=== PATIENT | female | born 1935 | race Caucasian/White ===

== ENCOUNTER 2019-06-22 19:06 | Emergency (ER) | payer OTHER ==
[~2019-06-22] VITALS: Ht 157.5 cm; Wt 39.9 kg
[2019-06-22 19:07] VITALS: BP_SYST 182
[2019-06-22] MEDS ORDERED: LISI-600 PO (19:36)
[2019-06-22 19:41] LABS: BILIRUBIN,URINE NEGATIVE (NEGATIVE); BLOOD, URINE NEGATIVE (NEGATIVE); CLARITY/URINE CLOUDY (CLEAR); COLOR,URINE YELLOW (YELLOW); GLUCOSE,URINE NEGATIVE (NEGATIVE); KETONES,URINE TRACE (NEGATIVE); LEUKOCYTE ESTERASE ,URINE 2+ (NEGATIVE); NITRITE, URINE POSITIVE (NEGATIVE); PH,URINE 6.5 (5.0-8.0); PROTEIN URINE TRACE (NEGATIVE)
[2019-06-22 19:45] LABS: BASOPHILS % (AUTO) 0.5 % (0.0-2.0); EOSINOPHILS # (AUTO) 0.2 K/uL (0.0-0.4); EOSINOPHILS % (AUTO) 3.9 % (0.0-4.0); HEMATOCRIT 37.5 % (36-48); HEMOGLOBIN 12.6 g/dL (12.0-16.0); LYMPHOCYTES # (AUTO) 1.6 K/uL (1.0-5.5); LYMPHOCYTES % (AUTO) 37.8 % (20.5-51.5); MEAN CORPUSCULAR HEMOGLOBIN 33 pg (27-31); MEAN CORPUSCULAR HGB CONC 34 % (32-36); MEAN CORPUSCULAR VOLUME 97 fL (79.0-98.0); MONOCYTES # (AUTO) 0.4 K/uL (0.0-1.0); MONOCYTES % (AUTO) 9.4 % (1.7-9.3); NEUTROPHILS % (AUTO) 48.4 % (40.0-70.0); PLATELET COUNT (AUTO) 239 K/uL (130-430); RED BLOOD CELL COUNT(AUTO) 3.87 MIL/uL (4.2-6.2); RED CELL DISTRIBUTION WIDTH 14.1 % (9.0-15.0); WHITE BLOOD COUNT (AUTO) 4.1 K/uL (4.8-10.8)
[2019-06-22 19:56] LABS: ANION GAP 10 (5-15); CALCIUM 8.9 mg/dL (8.4-11.0); CHLORIDE 102 mmol/L (98-107); CREATININE 1.07 mg/dL (0.55-1.30); GLUCOSE 105 mg/dL (70-99); POTASSIUM 3.9 mmol/L (3.5-5.1); SODIUM SERUM 138 mmol/L (136-145); UREA NITROGEN, BLOOD 25 mg/dL (8-21)
[2019-06-22 20:01] LABS: ALANINE AMINOTRANSFERASE 16 U/L (12-78); ALBUMIN 3.4 g/dL (3.4-4.8); ASPARTATE AMINOTRANSFERASE 14 U/L (10-37); TOTAL BILIRUBIN 0.5 mg/dL (0.0-1.0)
[2019-06-22 20:07] LABS: PROTHROMBIN TIME 10.1 SECS (9.5-12.5)
[2019-06-22 20:12] LABS: RBC,URINE 0-3 /HPF (0-3)
[2019-06-22 20:13] LABS: BACTERIA,URINE MANY /HPF (None Seen); WBC,URINE 50-80 /HPF (0-3)
[2019-06-22 20:14] LABS: URINE AMORPHOUS PHOSPHATES 2+ /HPF (None Seen)
[2019-06-22] MEDS ORDERED: LABETALOL 100 MG/ 20ML VIAL IVP ONE (20:30)
[2019-06-22] MEDS ORDERED: cefTRIAXone 1 GM IVPB PREMIX 50 ML IV ONE (20:30)
[2019-06-22 22:31] VITALS: BP_SYST 166
== END 2019-06-22 22:31 | disposition short-term general hospital (02) ==
LOC: SED 19:06
DX: I63.9 Cerebral infarction, unspecified (principal); N39.0 Urinary tract infection, site not specified; I10 Essential (primary) hypertension
CPT/HCPCS: 36415; 70450; 71045; 80053; 81000; 83605; 84484; 85025; 85610; 85730; 87040; 87086; 87186; 93005; 96365; 99285; J0696; J3490

== ENCOUNTER 2019-12-07 11:25 | Inpatient (IN) | payer OTHER, SELFPAY ==
[~2019-12-07] VITALS: Ht 154.9 cm; Wt 37.6 kg
[2019-12-07 11:25] VITALS: BP_SYST 75
[~2019-12-07 11:25] MED LIST: LISI-600 PO
[2019-12-07] MEDS ORDERED: NACL 0.9% 1,000 ML IV ONE (12:15)
[2019-12-07 13:20] LABS: BASOPHILS % (AUTO) 0.1 % (0.0-2.0); EOSINOPHILS % (AUTO) 0.2 % (0.0-4.0); HEMATOCRIT 32.6 % (36-48); HEMOGLOBIN 10.9 g/dL (12.0-16.0); LYMPHOCYTES # (AUTO) 0.7 K/uL (1.0-5.5); LYMPHOCYTES % (AUTO) 7.4 % (20.5-51.5); MEAN CORPUSCULAR HEMOGLOBIN 32 pg (27-31); MEAN CORPUSCULAR HGB CONC 33 % (32-36); MEAN CORPUSCULAR VOLUME 96 fL (79.0-98.0); MONOCYTES # (AUTO) 0.6 K/uL (0.0-1.0); MONOCYTES % (AUTO) 5.7 % (1.7-9.3); NEUTROPHILS # (AUTO) 8.4 K/uL (1.8-7.7); NEUTROPHILS % (AUTO) 86.6 % (40.0-70.0); PLATELET COUNT (AUTO) 341 K/uL (130-430); RED BLOOD CELL COUNT(AUTO) 3.38 MIL/uL (4.2-6.2); RED CELL DISTRIBUTION WIDTH 13.6 % (9.0-15.0); WHITE BLOOD COUNT (AUTO) 9.7 K/uL (4.8-10.8)
[2019-12-07 13:48] LABS: ANION GAP 11 (5-15); CALCIUM 8.8 mg/dL (8.4-11.0); CHLORIDE 104 mmol/L (98-107); CREATININE 1.54 mg/dL (0.55-1.30); GLUCOSE 173 mg/dL (70-99); POTASSIUM 4.4 mmol/L (3.5-5.1); SODIUM SERUM 140 mmol/L (136-145); UREA NITROGEN, BLOOD 75 mg/dL (8-21)
[2019-12-07 14:02] LABS: ALANINE AMINOTRANSFERASE 28 U/L (12-78); ALBUMIN 2.3 g/dL (3.4-4.8); ASPARTATE AMINOTRANSFERASE 47 U/L (10-37); TOTAL BILIRUBIN 0.4 mg/dL (0.0-1.0)
[2019-12-07 14:09] LABS: INR 1.1 (0.8-1.2); PROTHROMBIN TIME 10.8 SECS (9.5-12.5)
[2019-12-07 15:41] LABS: BILIRUBIN,URINE 1+ (NEGATIVE); BLOOD, URINE 1+ (NEGATIVE); CLARITY/URINE TURBID (CLEAR); COLOR,URINE YELLOW (YELLOW); GLUCOSE,URINE NEGATIVE (NEGATIVE); KETONES,URINE TRACE (NEGATIVE); LEUKOCYTE ESTERASE ,URINE 2+ (NEGATIVE); NITRITE, URINE NEGATIVE (NEGATIVE); PH,URINE 7.5 (5.0-8.0); PROTEIN URINE 2+ (NEGATIVE); UROBILINOGEN,URINE 0.2 (0.2-1.0)
[2019-12-07] MEDS ORDERED: ATOR40TA68 PO (16:28)
[2019-12-07] MEDS ORDERED: LISI-600 PO (16:28)
[2019-12-07] MEDS ORDERED: VIS25 PO (16:28)
[2019-12-07] MEDS ORDERED: TRAZ-250 PO (16:28)
[2019-12-07] MEDS ORDERED: ASCO500T20 PO (16:28)
[2019-12-07] MEDS ORDERED: MULT-1117 PO (16:28)
[2019-12-07 16:45] LABS: BACTERIA,URINE MANY /HPF (None Seen)
[2019-12-07 16:46] LABS: MUCUS,URINE None Seen /LPF (None Seen)
[2019-12-07 16:47] LABS: URINE AMORPHOUS PHOSPHATES 4+ /HPF (None Seen)
[2019-12-07] MEDS ORDERED: NS 500 ML IV ONE (18:30)
[2019-12-07] MEDS ORDERED: PIPERACILLIN/TAZO 2.25G/DEX-IS 50 ML IV SCH (18:45)
[2019-12-07 20:18] VITALS: BP_SYST 93
[2019-12-07] MEDS: KCL 40mEq in D5/0.45NS 1000 mL 1,000 ML IV SCH (21:00)
[2019-12-07] MEDS: ATORVASTATIN 20 MG TABLET PO SCH (21:00)
[2019-12-07] MEDS ORDERED: PIPERACILLIN/TAZOBACTAM 2.25 GM VIAL IV ONE (21:24)
[2019-12-07] MEDS ORDERED: KCL 40mEq in D5/0.45NS 1000 mL 1,000 ML IV ONE (21:24)
[2019-12-08] VITALS: BP_SYST 90; BP_SYST 91
[2019-12-08 00:20] LABS: BILIRUBIN,URINE 1+ (NEGATIVE); BLOOD, URINE 3+ (NEGATIVE); CLARITY/URINE CLOUDY (CLEAR); COLOR,URINE YELLOW (YELLOW); GLUCOSE,URINE NEGATIVE (NEGATIVE); KETONES,URINE TRACE (NEGATIVE); LEUKOCYTE ESTERASE ,URINE 2+ (NEGATIVE); NITRITE, URINE NEGATIVE (NEGATIVE); PROTEIN URINE 2+ (NEGATIVE); UROBILINOGEN,URINE 0.2 (0.2-1.0)
[2019-12-08 00:27] LABS: BACTERIA,URINE MANY /HPF (None Seen); RBC,URINE >100 /HPF (0-3); WBC,URINE >100 /HPF (0-3)
[2019-12-08] MEDS: PIPERACILLIN/TAZO 2.25G/DEX-IS 50 ML IV SCH ×5 (01:13→22:44)
[2019-12-08 06:13] LABS: BASOPHILS % (AUTO) 0.2 % (0.0-2.0); EOSINOPHILS # (AUTO) 0.1 K/uL (0.0-0.4); EOSINOPHILS % (AUTO) 1.5 % (0.0-4.0); HEMATOCRIT 25.6 % (36-48); HEMOGLOBIN 8.6 g/dL (12.0-16.0); LYMPHOCYTES % (AUTO) 10.1 % (20.5-51.5); MEAN CORPUSCULAR HEMOGLOBIN 33 pg (27-31); MEAN CORPUSCULAR HGB CONC 34 % (32-36); MEAN CORPUSCULAR VOLUME 97 fL (79.0-98.0); MONOCYTES # (AUTO) 0.6 K/uL (0.0-1.0); NEUTROPHILS % (AUTO) 82.2 % (40.0-70.0); PLATELET COUNT (AUTO) 275 K/uL (130-430); RED BLOOD CELL COUNT(AUTO) 2.64 MIL/uL (4.2-6.2); RED CELL DISTRIBUTION WIDTH 13.5 % (9.0-15.0); WHITE BLOOD COUNT (AUTO) 9.7 K/uL (4.8-10.8)
[2019-12-08 06:47] LABS: ALANINE AMINOTRANSFERASE 33 U/L (12-78); ALBUMIN 1.9 g/dL (3.4-4.8); ANION GAP 8 (5-15); ASPARTATE AMINOTRANSFERASE 60 U/L (10-37); CALCIUM 8.1 mg/dL (8.4-11.0); CHLORIDE 110 mmol/L (98-107); CREATININE 1.13 mg/dL (0.55-1.30); GLUCOSE 156 mg/dL (70-99); PHOSPHORUS 2.8 mg/dL (2.7-4.5); POTASSIUM 4.5 mmol/L (3.5-5.1); SODIUM SERUM 143 mmol/L (136-145); THYROID STIMULATING HORMONE 0.56 uIu/mL (0.36-3.74); TOTAL BILIRUBIN 0.3 mg/dL (0.0-1.0); UREA NITROGEN, BLOOD 70 mg/dL (8-21)
[2019-12-08 07:18] LABS: TOTAL IRON BIND. CAPACITY 107 ug/dL (250-450)
[2019-12-08 07:35] LABS: CHOLESTEROL 91 mg/dL (<200); HDL CHOLESTEROL 41 mg/dL (>55); LDL CHOLESTEROL 43 mg/dL (<100); TRIGLYCERIDES 62 mg/dL (30-150)
[2019-12-08] MEDS: ASCORBIC ACID 500 MG TABLET PO SCH (09:00)
[2019-12-08] MEDS: MULTIVITAMINS TAB 1 TABLET PO SCH (09:00)
[2019-12-08] MEDS: KCL 40mEq in D5/0.45NS 1000 mL 1,000 ML IV SCH ×3 (09:03→22:44)
[2019-12-08 09:05] VITALS: BP_SYST 95
[2019-12-08] MEDS: FLUCONAZOLE 100 mg/ NS 50 ML IV SCH (12:22)
[2019-12-08 12:55] VITALS: BP_SYST 138
[2019-12-08] MEDS ORDERED: MEGESTROL ACETATE 400 MG/10 ML UDC PO ONE (14:15)
[2019-12-08 16:34] VITALS: BP_SYST 123
[2019-12-08] MEDS ORDERED: MENTHOL/ZINC OXIDE 113 GM OINT. TP PRN (17:00)
[2019-12-08] MEDS: ATORVASTATIN 20 MG TABLET PO SCH (22:00)
[2019-12-09] VITALS: BP_SYST 111
[2019-12-09 05:09] LABS: BASOPHILS % (AUTO) 0.4 % (0.0-2.0); EOSINOPHILS # (AUTO) 0.2 K/uL (0.0-0.4); EOSINOPHILS % (AUTO) 2.6 % (0.0-4.0); HEMATOCRIT 23.5 % (36-48); LYMPHOCYTES # (AUTO) 1.5 K/uL (1.0-5.5); LYMPHOCYTES % (AUTO) 19.7 % (20.5-51.5); MEAN CORPUSCULAR HEMOGLOBIN 33 pg (27-31); MEAN CORPUSCULAR HGB CONC 34 % (32-36); MEAN CORPUSCULAR VOLUME 97 fL (79.0-98.0); MONOCYTES # (AUTO) 0.4 K/uL (0.0-1.0); MONOCYTES % (AUTO) 5.4 % (1.7-9.3); NEUTROPHILS # (AUTO) 5.5 K/uL (1.8-7.7); NEUTROPHILS % (AUTO) 71.9 % (40.0-70.0); PLATELET COUNT (AUTO) 267 K/uL (130-430); RED BLOOD CELL COUNT(AUTO) 2.43 MIL/uL (4.2-6.2); RED CELL DISTRIBUTION WIDTH 13.7 % (9.0-15.0); WHITE BLOOD COUNT (AUTO) 7.7 K/uL (4.8-10.8)
[2019-12-09 05:24] LABS: ANION GAP 8 (5-15); CALCIUM 7.8 mg/dL (8.4-11.0); CHLORIDE 111 mmol/L (98-107); CREATININE 0.95 mg/dL (0.55-1.30); GLUCOSE 124 mg/dL (70-99); POTASSIUM 5.3 mmol/L (3.5-5.1); SODIUM SERUM 142 mmol/L (136-145); UREA NITROGEN, BLOOD 38 mg/dL (8-21)
[2019-12-09] MEDS: PIPERACILLIN/TAZO 2.25G/DEX-IS 50 ML IV SCH ×4 (06:32→23:18)
[2019-12-09 07:50] VITALS: BP_SYST 108
[2019-12-09 08:13] LABS: FOLATE (FOLIC ACID) >20.0 ng/mL (>3.0)
[2019-12-09] MEDS: MEGESTROL ACETATE 400 MG/10 ML UDC PO SCH (08:58)
[2019-12-09] MEDS: ASCORBIC ACID 500 MG TABLET PO SCH (08:59)
[2019-12-09] MEDS: MULTIVITAMINS TAB 1 TABLET PO SCH (08:59)
[2019-12-09] MEDS: FLUCONAZOLE 100 mg/ NS 50 ML IV SCH (09:02)
[2019-12-09] MEDS: BALSAM PERU/CASTOR OIL 60 GM OINT...G. TP SCH (09:03)
[2019-12-09 12:00] VITALS: BP_SYST 107
[2019-12-09] MEDS ORDERED: CHOLECALCIFEROL (VITAMIN D3) 2,000 UNIT TABLET PO ONE (12:15)
[2019-12-09] MEDS: D5/0.45 NS 1,000 ML IV SCH ×2 (12:34→23:18)
[2019-12-09] MEDS: SOD FERRIC GLUC COMPLEX/SUC 125 MG in NS 100 ML IV SCH (14:06)
[2019-12-09 16:00] VITALS: BP_SYST 124
[2019-12-09 16:51] LABS: ANION GAP 6 (5-15); CALCIUM 7.9 mg/dL (8.4-11.0); CHLORIDE 109 mmol/L (98-107); CREATININE 0.99 mg/dL (0.55-1.30); GLUCOSE 212 mg/dL (70-99); POTASSIUM 5.3 mmol/L (3.5-5.1); SODIUM SERUM 140 mmol/L (136-145); UREA NITROGEN, BLOOD 46 mg/dL (8-21)
[2019-12-09 20:00] VITALS: BP_SYST 107
[2019-12-09] MEDS: ATORVASTATIN 20 MG TABLET PO SCH (20:18)
[2019-12-10 00:55] VITALS: BP_SYST 105
[2019-12-10] MEDS: PIPERACILLIN/TAZO 2.25G/DEX-IS 50 ML IV SCH ×3 (05:31→18:31)
[2019-12-10 07:32] LABS: BASOPHILS % (AUTO) 0.3 % (0.0-2.0); EOSINOPHILS # (AUTO) 0.2 K/uL (0.0-0.4); EOSINOPHILS % (AUTO) 1.8 % (0.0-4.0); HEMATOCRIT 24.1 % (36-48); LYMPHOCYTES # (AUTO) 1.3 K/uL (1.0-5.5); LYMPHOCYTES % (AUTO) 14.5 % (20.5-51.5); MEAN CORPUSCULAR HEMOGLOBIN 32 pg (27-31); MEAN CORPUSCULAR HGB CONC 33 % (32-36); MEAN CORPUSCULAR VOLUME 97 fL (79.0-98.0); MONOCYTES # (AUTO) 0.5 K/uL (0.0-1.0); MONOCYTES % (AUTO) 5.7 % (1.7-9.3); NEUTROPHILS # (AUTO) 7.1 K/uL (1.8-7.7); NEUTROPHILS % (AUTO) 77.7 % (40.0-70.0); PLATELET COUNT (AUTO) 245 K/uL (130-430); RED BLOOD CELL COUNT(AUTO) 2.49 MIL/uL (4.2-6.2); RED CELL DISTRIBUTION WIDTH 13.9 % (9.0-15.0); RETICULOCYTE COUNT 1.3 % (0.5-1.5); WHITE BLOOD COUNT (AUTO) 9.1 K/uL (4.8-10.8)
[2019-12-10 07:54] VITALS: BP_SYST 107
[2019-12-10 08:06] LABS: ANION GAP 9 (5-15); CALCIUM 7.8 mg/dL (8.4-11.0); CHLORIDE 108 mmol/L (98-107); CREATININE 0.95 mg/dL (0.55-1.30); GLUCOSE 158 mg/dL (70-99); PHOSPHORUS 1.5 mg/dL (2.7-4.5); POTASSIUM 4.9 mmol/L (3.5-5.1); SODIUM SERUM 139 mmol/L (136-145); UREA NITROGEN, BLOOD 39 mg/dL (8-21)
[2019-12-10] MEDS: MEGESTROL ACETATE 400 MG/10 ML UDC PO SCH (08:25)
[2019-12-10] MEDS: ASCORBIC ACID 500 MG TABLET PO SCH (08:26)
[2019-12-10] MEDS: MULTIVITAMINS TAB 1 TABLET PO SCH (08:26)
[2019-12-10] MEDS: CHOLECALCIFEROL (VITAMIN D3) 2,000 UNIT TABLET PO SCH (08:26)
[2019-12-10] MEDS: FLUCONAZOLE 100 mg/ NS 50 ML IV SCH (10:17)
[2019-12-10] MEDS: BALSAM PERU/CASTOR OIL 60 GM OINT...G. TP SCH (10:17)
[2019-12-10] MEDS ORDERED: NA PHOS 15 MM in NS 250 ML IV ONE (12:00)
[2019-12-10] MEDS: D5/0.45 NS 1,000 ML IV SCH (12:18)
[2019-12-10 12:41] VITALS: BP_SYST 102
[2019-12-10] MEDS ORDERED: LIDOCAINE 1% 10 MG/ML, 20 ML MDV INJ ONE (13:30)
[2019-12-10] MEDS ORDERED: MORPHINE 4 MG/ML INJ. SYRINGE IVP ONE (13:30)
[2019-12-10] MEDS ORDERED: LIDOCAINE 1%, 20 ML MDV 20 ML ONE (13:47)
[2019-12-10] MEDS ORDERED: MORPHINE 4 MG/ML INJ. SYRINGE ONE (13:47)
[2019-12-10] MEDS: SOD FERRIC GLUC COMPLEX/SUC 125 MG in NS 100 ML IV SCH (15:31)
[2019-12-10 16:29] VITALS: BP_SYST 129
[2019-12-10] MEDS: EPOETIN ALFA 4,000 UNITS/ML VIAL SUBCUT SCH (18:31)
[2019-12-10 19:00] VITALS: BP_SYST 125
[2019-12-10 20:00] VITALS: BP_SYST 125
[2019-12-10] MEDS: ATORVASTATIN 20 MG TABLET PO SCH (22:30)
[2019-12-11] VITALS: BP_SYST 122
[2019-12-11] MEDS: PIPERACILLIN/TAZO 2.25G/DEX-IS 50 ML IV SCH ×2 (00:13→05:24)
[2019-12-11] MEDS: D5/0.45 NS 1,000 ML IV SCH ×3 (01:30→22:33)
[2019-12-11 06:15] LABS: BASOPHILS % (AUTO) 0.2 % (0.0-2.0); EOSINOPHILS # (AUTO) 0.2 K/uL (0.0-0.4); EOSINOPHILS % (AUTO) 2.8 % (0.0-4.0); HEMATOCRIT 23.4 % (36-48); LYMPHOCYTES # (AUTO) 1.6 K/uL (1.0-5.5); LYMPHOCYTES % (AUTO) 20.4 % (20.5-51.5); MEAN CORPUSCULAR HEMOGLOBIN 33 pg (27-31); MEAN CORPUSCULAR HGB CONC 34 % (32-36); MEAN CORPUSCULAR VOLUME 96 fL (79.0-98.0); MONOCYTES # (AUTO) 0.4 K/uL (0.0-1.0); MONOCYTES % (AUTO) 5.4 % (1.7-9.3); NEUTROPHILS # (AUTO) 5.7 K/uL (1.8-7.7); NEUTROPHILS % (AUTO) 71.2 % (40.0-70.0); PLATELET COUNT (AUTO) 266 K/uL (130-430); RED BLOOD CELL COUNT(AUTO) 2.43 MIL/uL (4.2-6.2); RED CELL DISTRIBUTION WIDTH 13.7 % (9.0-15.0)
[2019-12-11 06:38] LABS: ANION GAP 10 (5-15); CALCIUM 7.8 mg/dL (8.4-11.0); CHLORIDE 106 mmol/L (98-107); CREATININE 0.93 mg/dL (0.55-1.30); GLUCOSE 127 mg/dL (70-99); PHOSPHORUS 2.4 mg/dL (2.7-4.5); POTASSIUM 4.1 mmol/L (3.5-5.1); SODIUM SERUM 138 mmol/L (136-145); UREA NITROGEN, BLOOD 26 mg/dL (8-21)
[2019-12-11 08:00] VITALS: BP_SYST 100
[2019-12-11] MEDS: CHOLECALCIFEROL (VITAMIN D3) 2,000 UNIT TABLET PO SCH (09:06)
[2019-12-11] MEDS: MULTIVITAMINS TAB 1 TABLET PO SCH ×2 (09:06→21:30)
[2019-12-11] MEDS: MEGESTROL ACETATE 400 MG/10 ML UDC PO SCH (09:06)
[2019-12-11] MEDS: ASCORBIC ACID 500 MG TABLET PO SCH (09:06)
[2019-12-11] MEDS: BALSAM PERU/CASTOR OIL 60 GM OINT...G. TP SCH (09:07)
[2019-12-11] MEDS: FLUCONAZOLE 100 mg/ NS 50 ML IV SCH (10:46)
[2019-12-11 12:14] VITALS: BP_SYST 100
[2019-12-11] MEDS: cefTRIAXone 1 GM in D5W 50 ML IV SCH (12:32)
[2019-12-11] MEDS: metroNIDAZOLE 250 MG TABLET PO SCH ×2 (14:17→21:29)
[2019-12-11] MEDS: SOD FERRIC GLUC COMPLEX/SUC 125 MG in NS 100 ML IV SCH (14:17)
[2019-12-11 16:38] VITALS: BP_SYST 129
[2019-12-11 20:00] VITALS: BP_SYST 110
[2019-12-11] MEDS: ATORVASTATIN 20 MG TABLET PO SCH (21:29)
[2019-12-12] VITALS: BP_SYST 111
[2019-12-12] MEDS: metroNIDAZOLE 250 MG TABLET PO SCH ×3 (05:27→21:40)
[2019-12-12 06:49] LABS: BASOPHILS % (AUTO) 0.3 % (0.0-2.0); EOSINOPHILS # (AUTO) 0.2 K/uL (0.0-0.4); HEMATOCRIT 23.5 % (36-48); HEMOGLOBIN 7.8 g/dL (12.0-16.0); LYMPHOCYTES # (AUTO) 1.5 K/uL (1.0-5.5); MEAN CORPUSCULAR HEMOGLOBIN 32 pg (27-31); MEAN CORPUSCULAR HGB CONC 33 % (32-36); MEAN CORPUSCULAR VOLUME 97 fL (79.0-98.0); MONOCYTES # (AUTO) 0.4 K/uL (0.0-1.0); MONOCYTES % (AUTO) 6.1 % (1.7-9.3); NEUTROPHILS # (AUTO) 4.6 K/uL (1.8-7.7); NEUTROPHILS % (AUTO) 68.6 % (40.0-70.0); PLATELET COUNT (AUTO) 271 K/uL (130-430); RED BLOOD CELL COUNT(AUTO) 2.44 MIL/uL (4.2-6.2); RED CELL DISTRIBUTION WIDTH 13.8 % (9.0-15.0); WHITE BLOOD COUNT (AUTO) 6.8 K/uL (4.8-10.8)
[2019-12-12 07:08] LABS: ALANINE AMINOTRANSFERASE 38 U/L (12-78); ALBUMIN 1.7 g/dL (3.4-4.8); ANION GAP 6 (5-15); ASPARTATE AMINOTRANSFERASE 28 U/L (10-37); CHLORIDE 108 mmol/L (98-107); CREATININE 0.66 mg/dL (0.55-1.30); GLUCOSE 110 mg/dL (70-99); SODIUM SERUM 139 mmol/L (136-145); TOTAL BILIRUBIN 0.2 mg/dL (0.0-1.0); UREA NITROGEN, BLOOD 16 mg/dL (8-21)
[2019-12-12 08:00] VITALS: BP_SYST 96
[2019-12-12] MEDS: MEGESTROL ACETATE 400 MG/10 ML UDC PO SCH (08:36)
[2019-12-12] MEDS: CHOLECALCIFEROL (VITAMIN D3) 2,000 UNIT TABLET PO SCH (08:36)
[2019-12-12] MEDS: MULTIVITAMINS TAB 1 TABLET PO SCH ×2 (08:37→21:39)
[2019-12-12] MEDS: ASCORBIC ACID 500 MG TABLET PO SCH (08:37)
[2019-12-12] MEDS: ACETAMINOPHEN 325 MG TABLET PO PRN ×3 (08:38→22:47)
[2019-12-12] MEDS: BALSAM PERU/CASTOR OIL 60 GM OINT...G. TP SCH (08:39)
[2019-12-12 11:30] VITALS: BP_SYST 133
[2019-12-12] MEDS: cefTRIAXone 1 GM in D5W 50 ML IV SCH (11:54)
[2019-12-12] MEDS: SOD FERRIC GLUC COMPLEX/SUC 125 MG in NS 100 ML IV SCH (13:35)
[2019-12-12 15:58] VITALS: BP_SYST 118
[2019-12-12] MEDS: EPOETIN ALFA 4,000 UNITS/ML VIAL SUBCUT SCH (16:08)
[2019-12-12] MEDS: VANCOMYCIN HCL 500 MG in NS 100 ML IV SCH (18:01)
[2019-12-12 20:00] VITALS: BP_SYST 124
[2019-12-12] MEDS: ATORVASTATIN 20 MG TABLET PO SCH (21:39)
[2019-12-12] MEDS: MUPIROCIN 2% TOPICAL OINTMENT 22 GM NS SCH (21:40)
[2019-12-12] MEDS: D5/0.45 NS 1,000 ML IV SCH (22:46)
[2019-12-13] VITALS: BP_SYST 150
[2019-12-13 06:25] LABS: BASOPHILS % (AUTO) 0.4 % (0.0-2.0); EOSINOPHILS # (AUTO) 0.3 K/uL (0.0-0.4); EOSINOPHILS % (AUTO) 3.6 % (0.0-4.0); HEMATOCRIT 25.6 % (36-48); HEMOGLOBIN 8.7 g/dL (12.0-16.0); LYMPHOCYTES # (AUTO) 1.7 K/uL (1.0-5.5); LYMPHOCYTES % (AUTO) 19.3 % (20.5-51.5); MEAN CORPUSCULAR HEMOGLOBIN 33 pg (27-31); MEAN CORPUSCULAR HGB CONC 34 % (32-36); MEAN CORPUSCULAR VOLUME 97 fL (79.0-98.0); MONOCYTES # (AUTO) 0.6 K/uL (0.0-1.0); MONOCYTES % (AUTO) 6.6 % (1.7-9.3); NEUTROPHILS # (AUTO) 6.1 K/uL (1.8-7.7); NEUTROPHILS % (AUTO) 70.1 % (40.0-70.0); PLATELET COUNT (AUTO) 315 K/uL (130-430); RED BLOOD CELL COUNT(AUTO) 2.66 MIL/uL (4.2-6.2); RED CELL DISTRIBUTION WIDTH 13.6 % (9.0-15.0); WHITE BLOOD COUNT (AUTO) 8.7 K/uL (4.8-10.8)
[2019-12-13 06:48] LABS: ALANINE AMINOTRANSFERASE 34 U/L (12-78); ALBUMIN 1.9 g/dL (3.4-4.8); ANION GAP 7 (5-15); ASPARTATE AMINOTRANSFERASE 20 U/L (10-37); CALCIUM 8.2 mg/dL (8.4-11.0); CHLORIDE 107 mmol/L (98-107); CREATININE 0.71 mg/dL (0.55-1.30); GLUCOSE 108 mg/dL (70-99); POTASSIUM 4.2 mmol/L (3.5-5.1); SODIUM SERUM 139 mmol/L (136-145); TOTAL BILIRUBIN 0.2 mg/dL (0.0-1.0); UREA NITROGEN, BLOOD 17 mg/dL (8-21)
[2019-12-13] MEDS: metroNIDAZOLE 250 MG TABLET PO SCH ×3 (06:50→21:18)
[2019-12-13 08:00] VITALS: BP_SYST 120
[2019-12-13] MEDS: MUPIROCIN 2% TOPICAL OINTMENT 22 GM NS SCH ×2 (09:12→21:19)
[2019-12-13] MEDS: MULTIVITAMINS TAB 1 TABLET PO SCH ×2 (09:12→21:18)
[2019-12-13] MEDS: CHOLECALCIFEROL (VITAMIN D3) 2,000 UNIT TABLET PO SCH (09:12)
[2019-12-13] MEDS: MEGESTROL ACETATE 400 MG/10 ML UDC PO SCH (09:12)
[2019-12-13] MEDS: ASCORBIC ACID 500 MG TABLET PO SCH (09:12)
[2019-12-13] MEDS: BALSAM PERU/CASTOR OIL 60 GM OINT...G. TP SCH (09:13)
[2019-12-13 12:00] VITALS: BP_SYST 100
[2019-12-13] MEDS: cefTRIAXone 1 GM in D5W 50 ML IV SCH (13:16)
[2019-12-13] MEDS: ACETAMINOPHEN 325 MG TABLET PO PRN (15:18)
[2019-12-13 16:00] VITALS: BP_SYST 106
[2019-12-13] MEDS: D5/0.45 NS 1,000 ML IV SCH (18:53)
[2019-12-13] MEDS: VANCOMYCIN HCL 500 MG in NS 100 ML IV SCH (18:53)
[2019-12-13 20:00] VITALS: BP_SYST 110
[2019-12-13] MEDS: ATORVASTATIN 20 MG TABLET PO SCH (21:18)
[2019-12-14 01:07] VITALS: BP_SYST 144
[2019-12-14 08:10] VITALS: BP_SYST 129
[2019-12-14] MEDS: ASCORBIC ACID 500 MG TABLET PO SCH (10:14)
[2019-12-14] MEDS: MULTIVITAMINS TAB 1 TABLET PO SCH (10:14)
[2019-12-14] MEDS: MEGESTROL ACETATE 400 MG/10 ML UDC PO SCH (10:14)
[2019-12-14] MEDS: CHOLECALCIFEROL (VITAMIN D3) 2,000 UNIT TABLET PO SCH (10:14)
[2019-12-14] MEDS: metroNIDAZOLE 250 MG TABLET PO SCH (10:15)
[2019-12-14] MEDS: MUPIROCIN 2% TOPICAL OINTMENT 22 GM NS SCH (10:15)
[2019-12-14 12:00] VITALS: BP_SYST 126
[2019-12-14] MEDS: cefTRIAXone 1 GM in D5W 50 ML IV SCH (12:21)
[2019-12-14 12:41] VITALS: BP_SYST 129
== END 2019-12-14 14:30 | DRG 853 ==
LOC: SED 11:25 → STU 15:29 → SMU 12-14 11:30
PROVIDERS: ADMIT Internal Medicine; ATTEND Internal Medicine
PROC: 0JBM0ZZ Excision of Left Upper Leg Subcutaneous Tissue and Fascia, Open Approach (ICD-10-PCS; principal; 2019-12-10)
PROC: 0JBL0ZZ Excision of Right Upper Leg Subcutaneous Tissue and Fascia, Open Approach (ICD-10-PCS; 2019-12-10)
PROC: 0JB70ZZ Excision of Back Subcutaneous Tissue and Fascia, Open Approach (ICD-10-PCS; 2019-12-10)
PROC: 0JB70ZZ Excision of Back Subcutaneous Tissue and Fascia, Open Approach (ICD-10-PCS; 2019-12-10)
DX: A41.02 Sepsis due to Methicillin resistant Staphylococcus aureus (principal); E43 Unspecified severe protein-calorie malnutrition; N17.0 Acute kidney failure with tubular necrosis; I96 Gangrene, not elsewhere classified; M86.9 Osteomyelitis, unspecified; N39.0 Urinary tract infection, site not specified; Z68.1 Body mass index [BMI] 19.9 or less, adult; L89.899 Pressure ulcer of other site, unspecified stage; B96.20 Unspecified Escherichia coli [E. coli] as the cause of diseases classified elsewhere; E78.5 Hyperlipidemia, unspecified; E86.0 Dehydration; F03.90 Unspecified dementia, unspecified severity, without behavioral disturbance, psychotic disturbance, mood disturbance, and anxiety; I10 Essential (primary) hypertension; L89.159 Pressure ulcer of sacral region, unspecified stage; L89.209 Pressure ulcer of unspecified hip, unspecified stage; M40.209 Unspecified kyphosis, site unspecified; R13.10 Dysphagia, unspecified; R62.7 Adult failure to thrive; D64.9 Anemia, unspecified; E87.5 Hyperkalemia; E83.39 Other disorders of phosphorus metabolism; Z74.01 Bed confinement status; B96.29 Other Escherichia coli [E. coli] as the cause of diseases classified elsewhere; B96.4 Proteus (mirabilis) (morganii) as the cause of diseases classified elsewhere; Z20.828 Contact with and (suspected) exposure to other viral communicable diseases
CPT/HCPCS: 36415; 71045; 80048; 80053; 80061; 81000-TC; 82306; 82607; 82746; 83540-TC; 83550-TC; 83605; 83735-TC; 84100-TC; 84134; 84443-TC; 84484; 85025; 85044-TC; 85610-TC; 85730-TC; 87040-TC; 87070-TC; 87075-TC; 87086; 87186-TC; 88304; 92610-GN; 93005; 99285; G0378; J0696; J0885; J1450; J2001; J2270; J2543; J2916; J3370; J7040; J7050; J7060